=== PATIENT | female | born 1950 | race Caucasian/White ===

== ENCOUNTER 2021-03-08 07:29 | Inpatient (IN) | payer MEDICARE ==
[~2021-03-08] VITALS: Ht 149.9 cm; Wt 51.1 kg
[2021-03-08] MEDS ORDERED: SODIUM CHLORIDE FLUSH 10ML SYR IVF ONE (08:00)
--- NOTE | 2021-03-08 08:00 | NUR ---
PT JEFF, EMS REPORTS PT IS VISITING FROM [place] SINCE SATURDAY, SYMPTOMS OF CONFUSION/HALLUCINATIONS STARTED LAST NIGHT. PT A&O BASELINE, PRESENTS CONFUSED AND LETHARGIC. PER EMS, BS 102, PT FRIEND REPORTS BASELINE BS 200. PT RESTING IN BED, RESPS EVEN AND UNLABORED, VSS, NADN. ALL MONITORS ATTACHED, CALL LIGHT IN REACH. DR YATES AT BEDSIDE FOR EVAL.
--- NOTE | 2021-03-08 08:11 | NUR ---
LAB AT BEDSIDE
[2021-03-08 08:15] LABS: BASOPHILS % (AUTO) 2 % (0-1); EOSINOPHILS % (AUTO) 3 % (1-7); LYMPHOCYTES % (AUTO) 22 % (22-44); MEAN CORPUSCULAR HEMOGLOBIN 21.9 pg (27.0-34.8); MEAN CORPUSCULAR HGB CONC 31.6 g/dL (32.4-35.8); MONOCYTES % (AUTO) 12 % (2-9); NEUTROPHILS % (AUTO) 62 % (42-75); PLATELET COUNT 376 x10^3/uL (130-400); RED BLOOD COUNT 4.57 x10^6/uL (3.82-5.3); RED CELL DISTRIBUTION WIDTH 18.5 % (9.6-15.2)
[2021-03-08 08:23] LABS: ALANINE AMINOTRANSFERASE 20 U/L (12-78); ALBUMIN 2.9 g/dL (3.4-5.0); ANION GAP 10 mmol/L (5-15); CHLORIDE 100 mmol/L (98-107); CREATININE 1.31 mg/dL (0.55-1.02)
[2021-03-08] MEDS ORDERED: CEFTRIAXONE 1,000 MG in DEXTROSE 5% 50 ML IVPB ONE (08:30)
[2021-03-08] MEDS ORDERED: AZITHROMYCIN 500 MG in SODIUM CHLORIDE 0.9% 250 ML IVPB ONE (08:30)
[2021-03-08 08:32] LABS: ALKALINE PHOSPHATASE 155 U/L (45-117); BILIRUBIN,TOTAL 0.2 mg/dL (0.2-1.0); TOTAL PROTEIN 6.8 g/dL (6.4-8.2); TROPONIN I < 0.015 ng/mL (0.000-0.045)
--- NOTE | 2021-03-08 08:33 | NUR ---
PRECEPTOR RN NOTE : PT TO CT
[2021-03-08 08:39] LABS: ANISOCYTOSIS 1+; HYPOCHROMIA 2+; MD MORPH REVIEW ONLY; MICROCYTOSIS 2+
[2021-03-08 08:40] LABS: OVALOCYTES 1+; POLYCHROMASIA 1+; TARGET CELLS 1+
[2021-03-08 08:41] LABS: <PLATELET ESTIMATE> ADEQUATE; <PLT MORPHOLOGY> NORMAL PLT MORPH
--- NOTE | 2021-03-08 08:46 | NUR ---
PT BACK FROM CT
[2021-03-08 08:52] LABS: MICROSCOPIC NOT IND
--- NOTE | 2021-03-08 09:14 | NUR ---
PRECEPTOR RN NOTE: PIV PLACED S/P CT SCAN, ROCEPHIN GTT INITIATED AFTER BLOOD CX DRAWN X 2. PT IS DROWSY, AROUSES TO VOICE. ORIENTED X 4. NEURO INTACT. DENIES PAIN. 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 PER FAMILY, PT HAS BEEN PRESCRIBED HOME OXYGEN IN PAST FOR QUERY COPD BUT REFUSED, ARRIVED WEARING OXYGEN AT 2L/MIN, DESATS TO 85% WHEN FLAT WEARING OXYGEN AT 2L/MIN. OXYGEN TITRATED TO 5L/MIN, HOB ELEVATED. RESPS EVEN AND UNLABORED, PT SPEAKS CLEARLY AND WITHOUT DIFFICULTY. PT AND FRIEND UPDATED WITH POC.
--- NOTE | 2021-03-08 09:32 | NUR ---
FRIEND JYAMIE BRINK (WITH PT) PHONE NUMBER- [phone] DAUGHTER ISABEL (IN [place])- [phone]
[2021-03-08] MEDS ORDERED: ATOR40TA78 PO (09:46)
[2021-03-08] MEDS ORDERED: ALBUTEROL INH (09:46)
[2021-03-08] MEDS ORDERED: ISOS60TA36 PO (09:46)
[2021-03-08] MEDS ORDERED: ASPIRIN PO (09:46)
[2021-03-08] MEDS ORDERED: METO100T5 PO (09:46)
[2021-03-08] MEDS ORDERED: FURO40TA6 PO (09:46)
[2021-03-08] MEDS ORDERED: LANS15TA6 PO (09:46)
[2021-03-08] MEDS ORDERED: MONT10TA6 PO (09:46)
[2021-03-08] MEDS ORDERED: VITAMIN D PO (09:46)
[2021-03-08] MEDS ORDERED: LORA-247 PO (09:46)
[2021-03-08] MEDS ORDERED: TORS20TA2 PO (09:46)
[2021-03-08] MEDS ORDERED: EZET10TA70 PO (09:46)
[2021-03-08] MEDS ORDERED: CARI-389 PO (09:46)
[2021-03-08] MEDS ORDERED: DILT120C80 PO (09:46)
[2021-03-08] MEDS ORDERED: ZOLP-413 PO (09:46)
[2021-03-08] MEDS ORDERED: SPIR25TA5 PO (09:46)
[2021-03-08] MEDS ORDERED: CLOP75TA PO (09:46)
[2021-03-08] MEDS ORDERED: INSU100V8 SQ (10:05)
[2021-03-08] MEDS ORDERED: HUMALOG SQ-INSULIN (10:05)
--- NOTE | 2021-03-08 10:08 | NUR ---
PT BG 54 ON BMP, MD YATES NOTIFIED. PT GIVEN 2 CUPS OF JUICE PER MD INSTRUCTION, TOLERATED WELL WITH NO S/SX ASPIRATION.
[2021-03-08] MEDS ORDERED: SODIUM CHLORIDE FLUSH 10ML SYR IVF PRN (10:30)
--- NOTE | 2021-03-08 10:50 | NUR ---
REPORT GIVEN TO RECEIVING PARI ROUSE
[2021-03-08] MEDS ORDERED: IMMODIUM PO (10:55)
[2021-03-08] MEDS ORDERED: MELA1TAB15 PO (10:55)
[2021-03-08] MEDS ORDERED: LANS15CA PO (10:58)
[2021-03-08 12:23] VITALS: BP 134/68
[2021-03-08] MEDS ORDERED: DEXTROSE 50%, 50ML SYRINGE ONE (12:34)
[2021-03-08] MEDS ORDERED: POLYETHYLENE GLYCOL 17 GM PACKET PO PRN (13:00)
[2021-03-08] MEDS ORDERED: GLUCAGON 1 MG IM PRN (13:00)
[2021-03-08] MEDS ORDERED: ACETAMINOPHEN 325 MG TABLET PO PRN (13:00)
[2021-03-08] MEDS ORDERED: DOCUSATE 100 MG CAPSULE PO PRN (13:00)
[2021-03-08] MEDS ORDERED: DEXTROSE 50%, 50ML SYRINGE IVPush PRN (13:00)
[2021-03-08] MEDS ORDERED: DEXTROSE 4 GM TAB.CHEW PO PRN (13:00)
[2021-03-08] MEDS ORDERED: ONDANSETRON 2MG/ML, 2ML IVPush PRN (13:00)
[2021-03-08] MEDS ORDERED: PHARMACY MAY ADJ FOR RENAL FX MC PRN (13:00)
[2021-03-08 13:57] LABS: TROPONIN I < 0.015 ng/mL (0.000-0.045)
[2021-03-08] MEDS: D5%-0.45NACL+KCL 40MEQ 1,000 ML IV SCH ×2 (14:25→22:32)
[2021-03-08] MEDS: AMPICILLIN/SULBACTAM 3 GM in SODIUM CHLORIDE 0.9% 100 ML IV SCH ×2 (14:26→19:46)
[2021-03-08] MEDS: MONTELUKAST 10 MG TABLET PO SCH (14:38)
[2021-03-08] MEDS: ENOXAPARIN 40 MG/0.4 ML SQ SCH (14:39)
[2021-03-08 18:50] VITALS: BP 132/72
[2021-03-08 19:02] LABS: TROPONIN I < 0.015 ng/mL (0.000-0.045)
[2021-03-08] MEDS: ATORVASTATIN 80 MG TABLET PO SCH (20:17)
[2021-03-08] MEDS: METOPROLOL SUCCINATE 100 MG TAB.ER.24H PO SCH (20:17)
[2021-03-08] MEDS: DILTIAZEM 120 MG CAP.ER.12H PO SCH (20:17)
[2021-03-08] MEDS: SODIUM CHLORIDE FLUSH 10ML SYR IVF SCH (21:00)
[2021-03-09 00:46] VITALS: BP 149/67
[2021-03-09] MEDS: AMPICILLIN/SULBACTAM 3 GM in SODIUM CHLORIDE 0.9% 100 ML IV SCH ×4 (01:28→18:38)
[2021-03-09 05:29] LABS: BASOPHILS % (AUTO) 2 % (0-1); EOSINOPHILS % (AUTO) 4 % (1-7); LYMPHOCYTES % (AUTO) 21 % (22-44); MEAN CORPUSCULAR HEMOGLOBIN 22.1 pg (27.0-34.8); MEAN CORPUSCULAR HGB CONC 31.6 g/dL (32.4-35.8); MONOCYTES % (AUTO) 14 % (2-9); NEUTROPHILS % (AUTO) 60 % (42-75); PLATELET COUNT 292 x10^3/uL (130-400); RED BLOOD COUNT 4.45 x10^6/uL (3.82-5.3); RED CELL DISTRIBUTION WIDTH 18.7 % (9.6-15.2)
[2021-03-09 05:30] LABS: MD NO
[2021-03-09 05:43] LABS: ALANINE AMINOTRANSFERASE 16 U/L (12-78); ALBUMIN 2.2 g/dL (3.4-5.0); ANION GAP 8 mmol/L (5-15); CALCIUM 7.4 mg/dL (8.5-10.1); CHLORIDE 108 mmol/L (98-107); CREATININE 0.88 mg/dL (0.55-1.02)
[2021-03-09 05:44] LABS: ALKALINE PHOSPHATASE 127 U/L (45-117); BILIRUBIN,TOTAL 0.3 mg/dL (0.2-1.0); TOTAL PROTEIN 5.6 g/dL (6.4-8.2)
[2021-03-09] MEDS: ASPIRIN 81 MG TABLET EC PO SCH (06:07)
[2021-03-09 07:14] VITALS: BP 152/69
[2021-03-09] MEDS: ISOSORBIDE MONONITRATE ER 60 MG TABLET PO SCH (08:05)
[2021-03-09] MEDS: EZETIMIBE 10 MG TABLET PO SCH (08:05)
[2021-03-09] MEDS: METOPROLOL SUCCINATE 100 MG TAB.ER.24H PO SCH ×2 (08:05→21:11)
[2021-03-09] MEDS: MONTELUKAST 10 MG TABLET PO SCH (08:05)
[2021-03-09] MEDS: CLOPIDOGREL 75 MG TABLET PO SCH (08:05)
[2021-03-09] MEDS: SPIRONOLACTONE 25 MG TABLET PO SCH (08:05)
[2021-03-09] MEDS: SODIUM CHLORIDE FLUSH 10ML SYR IVF SCH ×2 (08:06→21:12)
[2021-03-09] MEDS: DILTIAZEM 120 MG CAP.ER.12H PO SCH ×2 (08:06→21:11)
[2021-03-09] MEDS: D5%-0.45NACL+KCL 40MEQ 1,000 ML IV SCH (08:06)
[2021-03-09] MEDS ORDERED: AZITHROMYCIN 500 MG in SODIUM CHLORIDE 0.9% 250 ML IV SCH (10:00)
[2021-03-09 12:58] VITALS: BP 160/70
[2021-03-09] MEDS: ENOXAPARIN 40 MG/0.4 ML SQ SCH (13:20)
[2021-03-09 19:43] VITALS: BP 168/67
[2021-03-09] MEDS: INSULIN LISPRO 100 UNITS/ML, PEN SQ-INSULIN SCH (20:30)
[2021-03-09] MEDS: INSULIN GLARGINE 100 UNITS/ML, PEN SQ-INSULIN SCH (20:30)
[2021-03-09] MEDS: ATORVASTATIN 80 MG TABLET PO SCH (21:11)
[2021-03-09] MEDS: SODIUM CHLORIDE 0.9% 250 ML IV SCH ×2 (22:32→22:48)
[2021-03-10] MEDS: AMPICILLIN/SULBACTAM 3 GM in SODIUM CHLORIDE 0.9% 100 ML IV SCH ×4 (01:06→23:44)
[2021-03-10] MEDS ORDERED: INSULIN LISPRO 100 UNIT/ML, 3ML VIAL SQ-INSULIN ONE (01:30)
[2021-03-10 01:35] VITALS: BP 134/62
[2021-03-10] MEDS: ASPIRIN 81 MG TABLET EC PO SCH (06:08)
[2021-03-10 07:57] VITALS: BP 157/67
[2021-03-10] MEDS: MONTELUKAST 10 MG TABLET PO SCH (07:57)
[2021-03-10] MEDS: EZETIMIBE 10 MG TABLET PO SCH (07:57)
[2021-03-10] MEDS: CLOPIDOGREL 75 MG TABLET PO SCH (07:57)
[2021-03-10] MEDS: METOPROLOL SUCCINATE 100 MG TAB.ER.24H PO SCH ×2 (07:58→21:02)
[2021-03-10] MEDS: DILTIAZEM 120 MG CAP.ER.12H PO SCH ×2 (07:59→21:03)
[2021-03-10] MEDS: ISOSORBIDE MONONITRATE ER 60 MG TABLET PO SCH (07:59)
[2021-03-10] MEDS: SPIRONOLACTONE 25 MG TABLET PO SCH (07:59)
[2021-03-10] MEDS: INSULIN LISPRO 100 UNITS/ML, PEN SQ-INSULIN SCH ×4 (08:01→21:03)
[2021-03-10] MEDS: SODIUM CHLORIDE FLUSH 10ML SYR IVF SCH ×2 (08:01→21:02)
[2021-03-10] MEDS ORDERED: FUROSEMIDE 40 MG/4 ML IV ONE (09:30)
[2021-03-10] MEDS ORDERED: AMOXICILLIN/CLAV 875-125MG TABLET PO SCH (09:30)
[2021-03-10] MEDS: LINEZOLID 600 MG TABLET PO SCH ×2 (10:10→21:08)
[2021-03-10] MEDS: ENOXAPARIN 40 MG/0.4 ML SQ SCH (11:58)
[2021-03-10 14:16] VITALS: BP 167/68
[2021-03-10 18:38] VITALS: BP 133/64
[2021-03-10] MEDS: ATORVASTATIN 80 MG TABLET PO SCH (21:03)
[2021-03-10] MEDS: INSULIN GLARGINE 100 UNITS/ML, PEN SQ-INSULIN SCH (21:04)
[2021-03-11 01:24] VITALS: BP 143/82
[2021-03-11 04:40] LABS: ANION GAP 7 mmol/L (5-15); CALCIUM 7.5 mg/dL (8.5-10.1); CHLORIDE 105 mmol/L (98-107); CREATININE 0.94 mg/dL (0.55-1.02)
[2021-03-11 04:45] LABS: BASOPHILS % (AUTO) 1 % (0-1); EOSINOPHILS % (AUTO) 5 % (1-7); LYMPHOCYTES % (AUTO) 20 % (22-44); MD NO; MEAN CORPUSCULAR HEMOGLOBIN 22.1 pg (27.0-34.8); MEAN CORPUSCULAR HGB CONC 31.4 g/dL (32.4-35.8); MEAN PLATELET VOLUME 8.1 fL (7.4-10.4); MONOCYTES % (AUTO) 11 % (2-9); NEUTROPHILS % (AUTO) 63 % (42-75); PLATELET COUNT 270 x10^3/uL (130-400); RED BLOOD COUNT 4.28 x10^6/uL (3.82-5.3); RED CELL DISTRIBUTION WIDTH 18.6 % (9.6-15.2)
[2021-03-11] MEDS: AMPICILLIN/SULBACTAM 3 GM in SODIUM CHLORIDE 0.9% 100 ML IV SCH ×4 (05:14→23:11)
[2021-03-11] MEDS: ASPIRIN 81 MG TABLET EC PO SCH (05:15)
[2021-03-11] MEDS: METOPROLOL SUCCINATE 100 MG TAB.ER.24H PO SCH ×2 (08:14→20:43)
[2021-03-11] MEDS: DILTIAZEM 120 MG CAP.ER.12H PO SCH ×2 (08:14→20:43)
[2021-03-11] MEDS: MONTELUKAST 10 MG TABLET PO SCH (08:14)
[2021-03-11] MEDS: EZETIMIBE 10 MG TABLET PO SCH (08:14)
[2021-03-11] MEDS: ISOSORBIDE MONONITRATE ER 60 MG TABLET PO SCH (08:15)
[2021-03-11] MEDS: CLOPIDOGREL 75 MG TABLET PO SCH (08:15)
[2021-03-11] MEDS: SPIRONOLACTONE 25 MG TABLET PO SCH (08:15)
[2021-03-11] MEDS: LINEZOLID 600 MG TABLET PO SCH ×2 (08:15→20:46)
[2021-03-11] MEDS: SODIUM CHLORIDE FLUSH 10ML SYR IVF SCH ×2 (08:16→20:44)
[2021-03-11] MEDS: INSULIN LISPRO 100 UNITS/ML, PEN SQ-INSULIN SCH ×4 (08:17→20:44)
[2021-03-11] MEDS: INSULIN GLARGINE 100 UNITS/ML, PEN SQ-INSULIN SCH (08:17)
[2021-03-11] MEDS ORDERED: FUROSEMIDE 40 MG/4 ML IV SCH (09:00)
[2021-03-11 09:19] VITALS: BP 172/66
[2021-03-11] MEDS: ENOXAPARIN 40 MG/0.4 ML SQ SCH (11:59)
[2021-03-11 14:33] VITALS: BP 169/67
[2021-03-11 19:00] VITALS: BP 149/70
[2021-03-11] MEDS: ATORVASTATIN 80 MG TABLET PO SCH (20:43)
[2021-03-12 00:15] VITALS: BP 150/77
[2021-03-12] MEDS: AMPICILLIN/SULBACTAM 3 GM in SODIUM CHLORIDE 0.9% 100 ML IV SCH ×3 (05:11→17:53)
[2021-03-12] MEDS: ASPIRIN 81 MG TABLET EC PO SCH (05:11)
[2021-03-12 05:30] LABS: BASOPHILS % (AUTO) 2 % (0-1); EOSINOPHILS % (AUTO) 5 % (1-7); LYMPHOCYTES % (AUTO) 17 % (22-44); MEAN CORPUSCULAR HEMOGLOBIN 22.4 pg (27.0-34.8); MEAN CORPUSCULAR HGB CONC 31.9 g/dL (32.4-35.8); MEAN PLATELET VOLUME 8.2 fL (7.4-10.4); MONOCYTES % (AUTO) 8 % (2-9); NEUTROPHILS % (AUTO) 68 % (42-75); PLATELET COUNT 251 x10^3/uL (130-400); RED BLOOD COUNT 4.11 x10^6/uL (3.82-5.3); RED CELL DISTRIBUTION WIDTH 18.8 % (9.6-15.2)
[2021-03-12 05:38] LABS: MD NO
[2021-03-12 05:39] LABS: ANION GAP 10 mmol/L (5-15); CALCIUM 7.5 mg/dL (8.5-10.1); CHLORIDE 99 mmol/L (98-107); CREATININE 0.95 mg/dL (0.55-1.02)
[2021-03-12 06:40] VITALS: BP 149/52
[2021-03-12] MEDS: EZETIMIBE 10 MG TABLET PO SCH (08:51)
[2021-03-12] MEDS: CLOPIDOGREL 75 MG TABLET PO SCH (08:51)
[2021-03-12] MEDS: DILTIAZEM 120 MG CAP.ER.12H PO SCH ×2 (08:51→20:14)
[2021-03-12] MEDS: MONTELUKAST 10 MG TABLET PO SCH (08:51)
[2021-03-12] MEDS: METOPROLOL SUCCINATE 100 MG TAB.ER.24H PO SCH ×2 (08:52→20:14)
[2021-03-12] MEDS: SPIRONOLACTONE 25 MG TABLET PO SCH (08:52)
[2021-03-12] MEDS: INSULIN LISPRO 100 UNITS/ML, PEN SQ-INSULIN SCH ×4 (08:54→20:14)
[2021-03-12] MEDS: ISOSORBIDE MONONITRATE ER 60 MG TABLET PO SCH (08:55)
[2021-03-12] MEDS: SODIUM CHLORIDE FLUSH 10ML SYR IVF SCH ×2 (08:55→20:15)
[2021-03-12] MEDS: INSULIN GLARGINE 100 UNITS/ML, PEN SQ-INSULIN SCH (08:55)
[2021-03-12] MEDS ORDERED: FUROSEMIDE 40 MG/4 ML IV SCH (09:00)
[2021-03-12] MEDS: ENOXAPARIN 40 MG/0.4 ML SQ SCH (12:17)
[2021-03-12 13:25] VITALS: BP 150/72
[2021-03-12 14:42] LABS: ANION GAP 9 mmol/L (5-15); CALCIUM 7.7 mg/dL (8.5-10.1); CHLORIDE 101 mmol/L (98-107); CREATININE 1.21 mg/dL (0.55-1.02)
[2021-03-12 18:20] VITALS: BP 138/57
[2021-03-12] MEDS: ATORVASTATIN 80 MG TABLET PO SCH (20:14)
[2021-03-13] MEDS: AMPICILLIN/SULBACTAM 3 GM in SODIUM CHLORIDE 0.9% 100 ML IV SCH ×4 (00:58→17:48)
[2021-03-13 01:09] VITALS: BP 148/70
[2021-03-13] MEDS: ASPIRIN 81 MG TABLET EC PO SCH (05:24)
[2021-03-13 05:49] LABS: BASOPHILS % (AUTO) 1 % (0-1); EOSINOPHILS % (AUTO) 4 % (1-7); LYMPHOCYTES % (AUTO) 15 % (22-44); MEAN CORPUSCULAR HEMOGLOBIN 22.4 pg (27.0-34.8); MEAN CORPUSCULAR HGB CONC 31.1 g/dL (32.4-35.8); MEAN PLATELET VOLUME 8.2 fL (7.4-10.4); MONOCYTES % (AUTO) 7 % (2-9); NEUTROPHILS % (AUTO) 72 % (42-75); PLATELET COUNT 234 x10^3/uL (130-400); RED BLOOD COUNT 4.42 x10^6/uL (3.82-5.3); RED CELL DISTRIBUTION WIDTH 18.6 % (9.6-15.2)
[2021-03-13 05:52] LABS: CHLORIDE 99 mmol/L (98-107)
[2021-03-13 06:00] LABS: ANION GAP 11 mmol/L (5-15); CALCIUM 7.4 mg/dL (8.5-10.1); CREATININE 1.29 mg/dL (0.55-1.02)
[2021-03-13 06:09] LABS: MD NO
[2021-03-13 06:28] VITALS: BP 161/71
[2021-03-13] MEDS: EZETIMIBE 10 MG TABLET PO SCH (08:11)
[2021-03-13] MEDS: INSULIN LISPRO 100 UNITS/ML, PEN SQ-INSULIN SCH ×4 (08:11→20:51)
[2021-03-13] MEDS: ISOSORBIDE MONONITRATE ER 60 MG TABLET PO SCH (08:11)
[2021-03-13] MEDS: METOPROLOL SUCCINATE 100 MG TAB.ER.24H PO SCH ×2 (08:11→20:42)
[2021-03-13] MEDS: SPIRONOLACTONE 25 MG TABLET PO SCH (08:12)
[2021-03-13] MEDS: CLOPIDOGREL 75 MG TABLET PO SCH (08:12)
[2021-03-13] MEDS: MONTELUKAST 10 MG TABLET PO SCH (08:12)
[2021-03-13] MEDS: SODIUM CHLORIDE FLUSH 10ML SYR IVF SCH ×2 (08:12→20:42)
[2021-03-13] MEDS: DILTIAZEM 120 MG CAP.ER.12H PO SCH (08:12)
[2021-03-13] MEDS ORDERED: INSULIN GLARGINE 100 UNITS/ML, PEN SQ-INSULIN SCH (09:00)
[2021-03-13] MEDS: INSULIN LISPRO 100 UNIT/ML, 3ML VIAL SQ-INSULIN SCH ×2 (11:14→15:47)
[2021-03-13] MEDS ORDERED: FUROSEMIDE 40 MG/4 ML IV ONE (12:30)
[2021-03-13] MEDS: ENOXAPARIN 40 MG/0.4 ML SQ SCH (12:43)
[2021-03-13 12:57] VITALS: BP 144/61
[2021-03-13 18:23] VITALS: BP 153/65
[2021-03-13 20:41] VITALS: BP 163/70
[2021-03-13] MEDS: ATORVASTATIN 80 MG TABLET PO SCH (20:42)
[2021-03-13] MEDS: DILTIAZEM 60 MG CAP.ER.12H PO SCH (20:43)
[2021-03-14] VITALS (7 sets, daily range): BP systolic 124–176; BP diastolic 51–72
[2021-03-14] MEDS: AMPICILLIN/SULBACTAM 3 GM in SODIUM CHLORIDE 0.9% 100 ML IV SCH ×3 (00:23→11:12)
[2021-03-14] MEDS: ASPIRIN 81 MG TABLET EC PO SCH (05:39)
[2021-03-14 05:47] LABS: ANION GAP 11 mmol/L (5-15); CALCIUM 7.5 mg/dL (8.5-10.1); CHLORIDE 101 mmol/L (98-107); CREATININE 1.32 mg/dL (0.55-1.02)
[2021-03-14] MEDS: INSULIN LISPRO 100 UNIT/ML, 3ML VIAL SQ-INSULIN SCH ×3 (08:30→16:19)
[2021-03-14] MEDS: INSULIN LISPRO 100 UNITS/ML, PEN SQ-INSULIN SCH ×4 (08:30→21:00)
[2021-03-14] MEDS: EZETIMIBE 10 MG TABLET PO SCH (08:31)
[2021-03-14] MEDS: FUROSEMIDE 40 MG TABLET PO SCH (08:31)
[2021-03-14] MEDS: DILTIAZEM 60 MG CAP.ER.12H PO SCH (08:31)
[2021-03-14] MEDS: ISOSORBIDE MONONITRATE ER 60 MG TABLET PO SCH (08:31)
[2021-03-14] MEDS: MONTELUKAST 10 MG TABLET PO SCH (08:31)
[2021-03-14] MEDS: SPIRONOLACTONE 25 MG TABLET PO SCH (08:31)
[2021-03-14] MEDS: METOPROLOL SUCCINATE 100 MG TAB.ER.24H PO SCH ×2 (08:31→21:33)
[2021-03-14] MEDS: CLOPIDOGREL 75 MG TABLET PO SCH (08:31)
[2021-03-14] MEDS: SODIUM CHLORIDE FLUSH 10ML SYR IVF SCH ×2 (08:32→21:33)
[2021-03-14] MEDS ORDERED: INSULIN GLARGINE 100 UNITS/ML, PEN SQ-INSULIN SCH ×2 (09:00)
[2021-03-14] MEDS: ENOXAPARIN 40 MG/0.4 ML SQ SCH (13:46)
[2021-03-14] MEDS ORDERED: ENOXAPARIN 30 MG/0.3 ML SQ SCH (15:30)
[2021-03-14] MEDS: AMOXICILLIN/CLAV 500-125MG TABLET PO SCH (16:25)
[2021-03-14] MEDS: DILTIAZEM 30 MG TABLET PO SCH (21:32)
[2021-03-14] MEDS: ATORVASTATIN 80 MG TABLET PO SCH (21:32)
[2021-03-15 00:11] VITALS: BP 160/65
[2021-03-15] MEDS: AMOXICILLIN/CLAV 500-125MG TABLET PO SCH ×2 (03:55→15:21)
[2021-03-15] MEDS: ASPIRIN 81 MG TABLET EC PO SCH (05:58)
[2021-03-15 06:01] LABS: ANION GAP 4 mmol/L (5-15); CALCIUM 7.6 mg/dL (8.5-10.1); CHLORIDE 107 mmol/L (98-107); CREATININE 1.22 mg/dL (0.55-1.02)
[2021-03-15] MEDS ORDERED: DEXTROSE 50%, 50ML SYRINGE IVPush ONE (07:00)
[2021-03-15] MEDS: INSULIN LISPRO 100 UNIT/ML, 3ML VIAL SQ-INSULIN SCH ×3 (07:17→16:48)
[2021-03-15] MEDS: INSULIN LISPRO 100 UNITS/ML, PEN SQ-INSULIN SCH ×4 (07:17→21:18)
[2021-03-15 07:49] VITALS: BP 173/65
[2021-03-15] MEDS: ISOSORBIDE MONONITRATE ER 60 MG TABLET PO SCH (08:39)
[2021-03-15] MEDS: LISINOPRIL 20 MG TABLET PO SCH (08:39)
[2021-03-15] MEDS: SPIRONOLACTONE 25 MG TABLET PO SCH (08:39)
[2021-03-15] MEDS: CLOPIDOGREL 75 MG TABLET PO SCH (08:40)
[2021-03-15] MEDS: MONTELUKAST 10 MG TABLET PO SCH (08:40)
[2021-03-15] MEDS: FUROSEMIDE 40 MG TABLET PO SCH (08:40)
[2021-03-15] MEDS: METOPROLOL SUCCINATE 100 MG TAB.ER.24H PO SCH ×2 (08:40→21:17)
[2021-03-15] MEDS: DILTIAZEM 30 MG TABLET PO SCH ×2 (08:40→21:17)
[2021-03-15] MEDS: EZETIMIBE 10 MG TABLET PO SCH (08:40)
[2021-03-15] MEDS: SODIUM CHLORIDE FLUSH 10ML SYR IVF SCH ×2 (08:41→21:17)
[2021-03-15] MEDS ORDERED: INSULIN GLARGINE 100 UNITS/ML, PEN SQ-INSULIN SCH (09:00)
[2021-03-15] MEDS ORDERED: DILT120T PO (10:46)
[2021-03-15] MEDS ORDERED: AMOX-367 PO (10:46)
[2021-03-15] MEDS ORDERED: LISI-170 PO (10:46)
[2021-03-15 11:39] VITALS: BP 150/69
[2021-03-15] MEDS ORDERED: ENOXAPARIN 30 MG/0.3 ML SQ SCH (13:00)
[2021-03-15 18:37] VITALS: BP 187/63
[2021-03-15] MEDS: ATORVASTATIN 80 MG TABLET PO SCH (21:18)
[2021-03-16] MEDS ORDERED: hydrALAzine 20 MG/ML, 1ML ONE (01:27)
[2021-03-16 01:28] VITALS: BP 179/69
[2021-03-16 01:30] VITALS: BP_SYST 174; BP_SYST 175; BP_DIAS 65; BP_DIAS 66
[2021-03-16] MEDS ORDERED: hydrALAzine 20 MG/ML, 1ML IV ONE (01:30)
[2021-03-16] MEDS: AMOXICILLIN/CLAV 500-125MG TABLET PO SCH (02:42)
[2021-03-16 02:45] VITALS: BP 147/59
[2021-03-16] MEDS: ASPIRIN 81 MG TABLET EC PO SCH (05:19)
[2021-03-16] MEDS: INSULIN LISPRO 100 UNIT/ML, 3ML VIAL SQ-INSULIN SCH ×2 (07:00→11:00)
[2021-03-16 07:14] VITALS: BP 166/67
[2021-03-16] MEDS ORDERED: LOPERAMIDE 2 MG CAPSULE PO ONE (08:00)
[2021-03-16] MEDS: EZETIMIBE 10 MG TABLET PO SCH (08:03)
[2021-03-16] MEDS: INSULIN LISPRO 100 UNITS/ML, PEN SQ-INSULIN SCH ×3 (08:03→11:26)
[2021-03-16] MEDS: MONTELUKAST 10 MG TABLET PO SCH (08:04)
[2021-03-16] MEDS: ISOSORBIDE MONONITRATE ER 60 MG TABLET PO SCH (08:05)
[2021-03-16] MEDS: METOPROLOL SUCCINATE 100 MG TAB.ER.24H PO SCH (08:05)
[2021-03-16] MEDS: DILTIAZEM 30 MG TABLET PO SCH (08:05)
[2021-03-16] MEDS: LISINOPRIL 20 MG TABLET PO SCH (08:06)
[2021-03-16] MEDS: SPIRONOLACTONE 25 MG TABLET PO SCH (08:06)
[2021-03-16] MEDS: CLOPIDOGREL 75 MG TABLET PO SCH (08:06)
[2021-03-16] MEDS: FUROSEMIDE 40 MG TABLET PO SCH (08:31)
[2021-03-16] MEDS: SODIUM CHLORIDE FLUSH 10ML SYR IVF SCH (08:31)
[2021-03-16] MEDS ORDERED: INSULIN GLARGINE 100 UNITS/ML, PEN SQ-INSULIN SCH (09:00)
[2021-03-16] MEDS ORDERED: ENOXAPARIN 40 MG/0.4 ML SQ SCH (10:00)
== END 2021-03-16 12:00 | disposition home or self-care (01) | DRG 637 ==
LOC: ED 08:24 → SUATTDRO 10:12 → 4WST 10:22
PROVIDERS: ADMIT Internal Medicine; ATTEND Hospitalist
PROC: 0T9B70Z Drainage of Bladder with Drainage Device, Via Natural or Artificial Opening (ICD-10-PCS; principal; 2021-03-08)
DX: E11.649 Type 2 diabetes mellitus with hypoglycemia without coma (principal); G93.41 Metabolic encephalopathy; J69.0 Pneumonitis due to inhalation of food and vomit; J96.01 Acute respiratory failure with hypoxia; I50.33 Acute on chronic diastolic (congestive) heart failure; E87.1 Hypo-osmolality and hyponatremia; L03.116 Cellulitis of left lower limb; E87.2 Acidosis; I48.20 Chronic atrial fibrillation, unspecified; N17.0 Acute kidney failure with tubular necrosis; E87.6 Hypokalemia; D50.9 Iron deficiency anemia, unspecified; I25.10 Atherosclerotic heart disease of native coronary artery without angina pectoris; D53.9 Nutritional anemia, unspecified; R53.81 Other malaise; I11.0 Hypertensive heart disease with heart failure; J45.909 Unspecified asthma, uncomplicated; Z79.4 Long term (current) use of insulin; Z95.1 Presence of aortocoronary bypass graft; Z99.81 Dependence on supplemental oxygen; Z90.49 Acquired absence of other specified parts of digestive tract; Z88.5 Allergy status to narcotic agent
CPT/HCPCS: 36415; 70450; 71045; 80048; 80053; 81003; 82947; 82962; 83036; 83605; 83735; 83880; 84100; 84145; 84484; 85025; 87040; 93005; 93970; 96365; 96367; 96375; 99285; C8929; G0378; J0295; J0456; J0696; J1650; J1940; Q9957; J0360; J1815; J3480; J7050